=== PATIENT | male | born 1990 | race Caucasian/White ===

== ENCOUNTER 2016-10-26 21:19 | Emergency (ER) | payer OTHER ==
--- NOTE | 2016-10-26 21:40 | ED.REPORT ---
HPI-General Illness Date of Service Oct 26, 2016 ED Provider: Toro Buckner MD Patient is a 26 year old male presents to the ED who is in the process of transitioning from methadone to Suboxone. He has an upcoming appointment at [facility] in [place] in 4 days. He was on methadone for 5 years and got off of it. He became ill with pneumonia one week ago, was put back on methadone at [facility] and was discharged without any medication. He has been using heroin to prevent withdrawals during the methadone washout period. He does not currently have any infections from shooting. Patient requests a prescription for Suboxone to tide him over until his appointment at [facility]. Nursing Notes Stated Complaint: MEDS Nursing Notes Reviewed: Yes Allergies: Coded Allergies: No Known Allergies (Verified Allergy, Unknown, 09/29/05) Scheduled Buprenorphine HCl/Naloxone HCl (Suboxone 8 mg-2 mg Sl Film) 1 Each Film 1 EACH SL BID General Time Seen by MD: 21:38 Chief Complaint Other (methadone withdrawal) Hx Obtained From: Patient Arrived By: Walk-in Sudden in Onset?: Yes Onset Occurred: 9 - 12 hours ago Symptom Duration: Since onset Recent Healthcare: Recent doctor visit, Recent hospitalization Similar Sx Previous: No Past Medical History Past Medical History pneumonia (10/2016) Social History heroin use (shoots) Other Social History: Local resident Ambulatory Status Independent Review of Systems substance abuse methadone withdrawal Complete sys rev & neg: except as marked. Physical Exam Vital Signs Vital Signs Date Time Temp Pulse Resp B/P Pulse Ox O2 Delivery O2 Flow Rate FiO2 10/26/16 22:44 36.1 94 16 133/79 98 Initial VS: Reviewed General/Constitutional: Well-developed, Well-nourished Head / Eyes: Atraumatic, Normocephalic, PERRL ENT: Mucous membranes moist, Conjunctiva normal, No scleral icterus Neck: Supple, Non-tender, Full range of motion Respiratory: Breath sounds normal, Clear to auscultation, No respiratory distress Cardiovascular: Regular rate & rhythm, Heart sounds normal, Intact distal pulses Abdomen / GI: Soft, Non-tender, No guarding, No rebound, No distention Back: No CVA tenderness Lymphatic: No lymphadenopathy Extremities: Vascular intact, Neuro intact, No swelling, No tenderness Skin: Warm, Dry, No cyanosis Neurologic: Alert, Oriented, Nonfocal Psychiatric: Mood/affect normal, Behavior normal, Normal thought content Re-Eval/Medical Decision Med Decision/Clinical Course 26-year-old male who is in the process of transitioning from methadone to Suboxone. He has a upcoming appointment at [facility] in 4 days. He has used short-acting opiates during the methadone washout. Buprenorphine/ naloxone 8/2 film, 1 sublingual twice a day, #8 prescription written. Follow- up as planned at [facility]. Time of Eval: 22:37 Patient Status: Condition unchanged Re-Evaluation/Progress Note: Pt is informed of diagnosis and intended plan. All questions are addressed. She understands and agrees with the treatment plan. Counseled Regarding: Diagnosis, Need for follow-up, When/why to return to ED Discharge & Departure Primary Impression: Opioid dependence with withdrawal Disposition: Home Discharge Condition All VS Reviewed: Yes Condition: Stable Patient Instructions: Buprenorphine/Naloxone (By mouth) Additional Instructions: Buprenorphine/naloxone 8/2 film, 1 sublingual twice a day, #8 prescription written. Do not start this until late tomorrow morning. Follow-up as planned at [facility]. Scribe Attestation Portions of this note were transcribed by Antony Ballard. I, Dr. Buckner personally performed the history, physical exam and medical decision-making; I reviewed and confirmed the accuracy of the information in the transcribed note. Signed by: Bimal Thornton, 10/26/16 2240 Toro Buckner MD Oct 26, 2016 21:40 ANTONY BALLARD Oct 26, 2016 22:38
[2016-10-26] MEDS ORDERED: BUPR1FIL3 SL (22:31)
[2016-10-26 22:44] VITALS: BP 133/79; PULSE 94; RESP 16; O2SAT 98
== END 2016-10-26 22:50 | disposition home or self-care (01) ==
LOC: SED 21:19
DX: F11.23 Opioid dependence with withdrawal (principal)